=== PATIENT | male | born 1995 | race Caucasian/White ===

== ENCOUNTER 2020-10-05 00:39 | Observation (INO) ==
[2020-10-05] MEDS ORDERED: *HR* Heparin 5,000 UNIT/ML VIAL IVP PRN (04:50)
[2020-10-05] MEDS ORDERED: Acetaminophen 325 MG TABLET PO PRN (04:55)
[2020-10-05] MEDS ORDERED: Naloxone 0.4 MG/ML INJ IVP PRN (04:55)
[2020-10-05] MEDS ORDERED: Ondansetron 4 MG/2 ML VIAL IVP PRN (04:55)
[2020-10-05] MEDS ORDERED: Morphine Sulfate 2 MG/ML SYRINGE IVP ONE (04:57)
[2020-10-05] MEDS ORDERED: Nitroglycerin 0.4 MG TAB.SUBL SL PRN (04:57)
[2020-10-05 05:03] LABS: Hematocrit 51.3 % (37.5-50.1); Hemoglobin 16.1 g/dL (12.9-16.9); Mean Corpuscular HGB Conc 31.4 g/dL (31.6-35.5); Mean Corpuscular Hemoglobin 26.4 pg (28.0-33.3); Mean Platelet Volume 9.5 fL (9.4-12.4); Platelet Count 577 K/mcL (140-400); Red Blood Count 6.11 M/mcL (4.19-5.50); Red Cell Distribution Width 14.6 % (11.5-14.5); White Blood Count 9.6 K/mcL (4.3-11.1)
[2020-10-05] MEDS ORDERED: Perflutren Lipid Microsphere 1.3 ML in 0.9 % Sodium Chloride 8.7 ML IVP PRN (05:20)
[2020-10-05 05:21] LABS: Amphetamine Screen,Urine Negative ng/mL (Cutoff=1000); Barbiturate Screen,Urine Negative ng/mL (Cutoff=200); Benzodiazepines Screen,Urine Negative ng/mL (Cutoff=200); Cannabinoid Screen,Urine Negative ng/mL (Cutoff = 50); Cocaine Screen,Urine Negative ng/mL (Cutoff= 300); Opiate Screen,Urine Negative ng/mL (Cutoff=300); Phencyclidine Screen,Urine Negative ng/mL (Cutoff=25)
[2020-10-05 05:40] LABS: BUN/Creatinine Ratio 21 (6-26); Blood Urea Nitrogen 22 mg/dL (6-20); Calcium 9.6 mg/dL (8.6-10.3); Carbon Dioxide 24 mEq/L (23-29); Chloride 103 mEq/L (98-107); Chol/HDL Ratio 4.3 (0-4.9); Cholesterol 212 mg/dL (< 200); Glucose 120 mg/dL (70-105); HDL Cholesterol 49 mg/dL (40-59); LDL Cholesterol,Calculated 134 mg/dL (< 100); Osmolality,Calculated 287 (280-300); Potassium 4.2 mEq/L (3.5-5.1); Sodium 136 mEq/L (136-145); Triglycerides 144 mg/dL (< 150); Troponin I 0.76 ng/mL (< 0.04); eGFR For African Americans > 60 (> 60); eGFR For Non-African Americans > 60 (> 60)
[2020-10-05 05:43] LABS: Thyroid Stimulating Hormone 4.005 mcIU/mL (0.340-5.600)
[2020-10-05] MEDS: Heparin 25,000UNIT/250ML 1/2NS 25,000 UNIT/250 ML IV.SOLN IVC SCH ×2 (07:54→22:13)
[2020-10-05] MEDS: Nicotine 14 MG PATCH.TD24 TD SCH (07:57)
[2020-10-05] MEDS: lisinopriL 20 MG TABLET PO SCH (07:57)
[2020-10-05] MEDS: Aspirin Enteric Coated 81 MG Tablet PO SCH (07:57)
[2020-10-05] MEDS: carvediloL 6.25 MG TABLET PO SCH ×2 (07:57→17:18)
[2020-10-05] MEDS: *HR* Heparin 5,000 UNIT/ML VIAL IVP PRN (13:58)
[2020-10-06 01:24] LABS: Hematocrit 52.7 % (37.5-50.1); Hemoglobin 16.3 g/dL (12.9-16.9); Mean Corpuscular HGB Conc 30.9 g/dL (31.6-35.5); Mean Corpuscular Hemoglobin 26.5 pg (28.0-33.3); Mean Corpuscular Volume 85.7 fL (83.0-100.0); Mean Platelet Volume 9.4 fL (9.4-12.4); Platelet Count 562 K/mcL (140-400); Red Blood Count 6.15 M/mcL (4.19-5.50); Red Cell Distribution Width 14.9 % (11.5-14.5); White Blood Count 9.8 K/mcL (4.3-11.1)
[2020-10-06 01:43] LABS: BUN/Creatinine Ratio 22 (6-26); Blood Urea Nitrogen 20 mg/dL (6-20); Calcium 9.3 mg/dL (8.6-10.3); Carbon Dioxide 24 mEq/L (23-29); Chloride 104 mEq/L (98-107); Glucose 122 mg/dL (70-105); Osmolality,Calculated 290 (280-300); Potassium 4.3 mEq/L (3.5-5.1); Sodium 138 mEq/L (136-145); eGFR For African Americans > 60 (> 60); eGFR For Non-African Americans > 60 (> 60)
[2020-10-06] MEDS: lisinopriL 20 MG TABLET PO SCH (08:49)
[2020-10-06] MEDS: Aspirin Enteric Coated 81 MG Tablet PO SCH (08:49)
[2020-10-06] MEDS: Nicotine 14 MG PATCH.TD24 TD SCH (08:49)
[2020-10-06] MEDS: carvediloL 6.25 MG TABLET PO SCH ×2 (08:49→18:22)
[2020-10-06] MEDS: Heparin 25,000UNIT/250ML 1/2NS 25,000 UNIT/250 ML IV.SOLN IVC SCH (14:09)
[2020-10-06] MEDS: *HR* Heparin 5,000 UNIT/ML VIAL IVP PRN (14:37)
[2020-10-07] MEDS: Heparin 25,000UNIT/250ML 1/2NS 25,000 UNIT/250 ML IV.SOLN IVC SCH (01:48)
[2020-10-07 02:25] LABS: Hemoglobin 16.4 g/dL (12.9-16.9); Mean Corpuscular HGB Conc 31.5 g/dL (31.6-35.5); Mean Corpuscular Hemoglobin 26.6 pg (28.0-33.3); Mean Corpuscular Volume 84.3 fL (83.0-100.0); Mean Platelet Volume 9.6 fL (9.4-12.4); Platelet Count 585 K/mcL (140-400); Red Blood Count 6.17 M/mcL (4.19-5.50); Red Cell Distribution Width 14.8 % (11.5-14.5)
[2020-10-07 02:46] LABS: BUN/Creatinine Ratio 19 (6-26); Blood Urea Nitrogen 18 mg/dL (6-20); Calcium 9.4 mg/dL (8.6-10.3); Carbon Dioxide 25 mEq/L (23-29); Chloride 103 mEq/L (98-107); Glucose 115 mg/dL (70-105); Osmolality,Calculated 293 (280-300); Potassium 4.3 mEq/L (3.5-5.1); Sodium 140 mEq/L (136-145); eGFR For African Americans > 60 (> 60); eGFR For Non-African Americans > 60 (> 60)
[2020-10-07] MEDS: Aspirin Enteric Coated 81 MG Tablet PO SCH (08:38)
[2020-10-07] MEDS: lisinopriL 20 MG TABLET PO SCH (08:38)
[2020-10-07] MEDS: carvediloL 6.25 MG TABLET PO SCH ×2 (08:38→17:45)
[2020-10-07] MEDS: Nicotine 14 MG PATCH.TD24 TD SCH (09:00)
[2020-10-07] MEDS ORDERED: *HR* Midazolam HCl 2 MG/2 ML VIAL ONE (15:09)
[2020-10-07] MEDS ORDERED: *HR* FentaNYL (PF) 100 MCG/2 ML VIAL ONE (15:09)
[2020-10-07] MEDS ORDERED: ISOVUE-370 200 ML INFUS..BTL ONE (15:10)
[2020-10-07] MEDS ORDERED: 0.9 % Sodium Chloride 2,000 ML ONE (15:10)
[2020-10-07] MEDS ORDERED: Heparin 1,000 UNITS/500 mL 500 ML ONE (15:10)
[2020-10-07] MEDS ORDERED: *HR* Heparin 10,000 UNIT/10 ML VIAL ONE (15:10)
[2020-10-07] MEDS ORDERED: Nitroglycerin 1,000 MCG/5 ML VIAL IV ONE (15:10)
[2020-10-07] MEDS: 0.9 % Sodium Chloride 1,000 ML IVC SCH (17:46)
[2020-10-08] MEDS: 0.9 % Sodium Chloride 1,000 ML IVC SCH (05:58)
[2020-10-08 07:12] VITALS: BP 142/96
[2020-10-08] MEDS: Aspirin Enteric Coated 81 MG Tablet PO SCH (08:45)
[2020-10-08] MEDS: lisinopriL 20 MG TABLET PO SCH (08:45)
[2020-10-08] MEDS: Nicotine 14 MG PATCH.TD24 TD SCH (08:46)
[2020-10-08] MEDS: carvediloL 6.25 MG TABLET PO SCH (08:46)
[2020-10-08] MEDS: Heparin 25,000UNIT/250ML 1/2NS 25,000 UNIT/250 ML IV.SOLN IVC SCH (09:55)
[2020-10-08 12:32] LABS: Estimated Average Glucose 117 mg/dl; Hemoglobin A1C 5.7 %
== END 2020-10-08 12:14 | disposition home or self-care (01) ==
LOC: 2NENU → SUATTDRO 03:31
PROVIDERS: ADMIT Student in an Organized Health Care Education/Training Program; ATTEND Internal Medicine